=== PATIENT | male | born 1970 | race Caucasian/White ===

== ENCOUNTER 2023-11-12 06:31 | Day surgery (SDC) | payer OTHER, SELFPAY ==
[2023-09-11 09:24] VITALS: BMI 38.4
[2023-11-12] VITALS (10 sets, daily range): BP systolic 106–157; BP diastolic 59–99; BMI 38.4
[2023-11-12] MEDS: TYLENOL 1000 MG PO (11:15)
[2023-11-12] MEDS: NORMOSOL-R 1000 IV (11:15)
--- NOTE | 2023-11-12 14:10 | W.IMMPOSTOP ---
Surgical Immed Post Op Note
-
Primary Surgeon: Junito
Assisting: Ilana KUHN
Pre-op Diagnosis: Incarcerated umbilical hernia
Post-op Diagnosis: Same
Procedure Performed: Robot assisted laparosclopic repair incarcerated umbilical hernia (2x4cm defect; rTAPP)
Anesthesia Type: GETA + TAP block
Specimen / Cultures: None
Estimated Blood Loss: 5cc
Complications: None immediate
Operative Findings: 2x4 cm [place] cheese type defect; 15cm x 15cm bard soft mesh
--- NOTE | 2023-11-12 14:11 | OR.RPT ---
Operative Report
Operative Report
Primary Surgeon: Junito
Assisting: Ilana KUHN
Pre-op Diagnosis: Incarcerated umbilical hernia
Post-op Diagnosis: Same
Procedure Performed: Robot assisted laparoscopic repair incarcerated umbilical hernia (2x4cm defect; rTAPP)
Anesthesia Type: GETA + TAP block
Specimen / Cultures: None
Estimated Blood Loss: 5cc
Complications: None immediate
Operative Findings: 2x4 cm [place] cheese type defect; 15cm x 15cm bard soft mesh'
Date of surgery: 11/12/23
Indications:� This 53M developed a symptomatic umbilical hernia. Robot assisted laparoscopic repair was planned.
Description of procedure:� The patient was taken to the operating room and positioned into supine position. The patient�s abdomen was prepped and draped in standard sterile fashion. A time-out was completed verifying correct patient, procedure,
site, positioning, and implants and special equipment prior to beginning this procedure.� The hernia was manually reduced after induction. A stab incision was made in the left upper quadrant, a Veress needle was inserted and proper position was
confirmed by aspiration and saline drop test. Following this, pneumoperitoneum was created with insufflation of carbon dioxide to 12 mmHg. Then a 8mm robotic trocar was inserted at the left anterior axillary line at the level of the umbilicus. A
laparoscope was inserted and the area of initial trocar entry and Veress needle placement were both inspected and no injuries were found. Two 8mm trocars were then placed a hand's breadth above and below the initial trocar under direct visualization.
Attention was turned to the umbilicus. The peritoneum was incised several cm superior to the defect adjacent to the midline. This incision was carried inferiorly and toward the left side in a curvilinear fashion. A flap was developed with blunt and
sharp dissection in the caudad direction. The hernia was identified and measured 2x4cm, incarcerated fat was reduced and the hernia was closed with 0 PDS stratafix suture. A 15 x 15cm piece of bard soft mesh was passed into the abdomen and placed
flush against the abdominal wall centered on the defect. The mesh was secured at all four corners with 2-0 vicryl suture. The flap was closed with 2-0 monocryl suture. A 14g angiocath was used to decompress the preperitoneal space revealing good
seal and all mesh in good position without folding or curling. A transversus abdominis plane block was then performed under laparoscopic vision with marcaine/decadron.
After ensuring adequate hemostasis, the trocars were removed and the pneumoperitoneum allowed to escape. The trocar incisions were closed at the skin level using 4-0 monocryl and topical skin adhesive. All counts were correct and the patient
tolerated the procedure well and was taken to the postanesthesia care unit in stable condition.
The assistance of Ilana KUHN was required due to the complexity of the procedure. During the procedure she assisted with retraction, resection, and closure of the wound.
== END 2023-11-12 16:10 | disposition home or self-care (01) ==
LOC: SDS 06:31
PROVIDERS: ATTENDING PHYSICIAN Surgery; FAMILY PHYSICIAN Family Medicine
DX: K42.0 Umbilical hernia with obstruction, without gangrene (principal)
CPT/HCPCS: 49594; 36415; 93005; C1781

== ENCOUNTER → 2024-12-25 15:38 | Outpatient (REF) | payer OTHER, SELFPAY | LOC: HWRCS 15:38 | PROVIDERS: ATTENDING PHYSICIAN Internal Medicine Cardiovascular Disease; FAMILY PHYSICIAN Family Medicine | DX: R07.2 Precordial pain (principal) | CPT/HCPCS: 93306 ==

== ENCOUNTER → 2025-01-28 07:49 | Outpatient (REF) | payer OTHER, SELFPAY | LOC: HWRCS 07:49 | PROVIDERS: ATTENDING PHYSICIAN Internal Medicine Cardiovascular Disease; FAMILY PHYSICIAN Physician Assistant Medical | DX: R07.2 Precordial pain (principal) | CPT/HCPCS: 78452; 93017; A9500 ==